=== PATIENT | male | born 1975 | race Two or more races ===

== ENCOUNTER 2022-11-19 07:47 | Outpatient (OUT) | payer BC, SELFPAY ==
[2022-11-19 09:46] LABS: Estimated Average Glucose 183 mg/dL
== END 2022-11-19 07:48 | disposition home or self-care (01) ==
PROVIDERS: PCP Nurse Practitioner Family; Visit Provider Nurse Practitioner Family
DX: E11.9 Type 2 diabetes mellitus without complications (principal)
CPT/HCPCS: 36415; 83036

== ENCOUNTER 2023-05-27 07:44 | Outpatient (OUT) | payer BC, SELFPAY ==
--- NOTE | 2023-05-27 | CT_ITS ---
[address] [address] Patient Name: DYLAN BOX MRN: [id number] date: 1975 Sex: M Assigned Patient Location: CT Current Patient Location: Accession/Order Number: [id number] Exam Date: 05/27/2023 08:17 Report Date: 05/29/2023 07:42 At the request of: ELKE GARCIA Procedure: CT chest wo con EXAMINATION: CT chest wo con HISTORY: solitary pulmonary nodule r91.1 COMPARISON: 04/01/2022, 02/27/2021 TECHNIQUE: Multi-planar CT images were created with IV contrast. Axial, Coronal, and Sagittal images. Dose reduction techniques were achieved by using automated exposure control and/or adjustment of mA and/or kV according to patient size and/or use of iterative reconstruction technique. FINDINGS: LUNGS: Stable 8 mm left upper lobe solid pulmonary nodule axial image 17. PLEURA: No mass, effusion, or pneumothorax. VASCULATURE: No abnormality. RODRIGO: No mass or adenopathy. MEDIASTINUM: No mass or adenopathy. CARDIAC: No enlargement or pericardial effusion. Mild coronary atherosclerosis AORTA: No aneurysm or dissection. CHEST WALL: No mass or axillary adenopathy. BONES: No bone lesion or fracture. LIMITED ABDOMEN: No suspicious findings. Limited images of the upper abdomen. OTHER: Negative. CT/CT chest wo con IMPRESSION: Stable 8 mm left upper lobe nodule Electronically authenticated by: BROOKE KEARNEY Date: 05/29/2023 07:42
== END 2023-05-27 07:45 | disposition home or self-care (01) ==
LOC: CT 07:45
PROVIDERS: PCP Nurse Practitioner Family; Visit Provider Nurse Practitioner Family
DX: R91.1 Solitary pulmonary nodule (principal)
CPT/HCPCS: 71250